=== PATIENT | male | born 1985 | race Caucasian/White ===

== ENCOUNTER → 2017-01-11 | Outpatient (CLI) | payer OTHER ==
[~2017-01-11] MED LIST: ASPIR-TRIN325 MG PO; ASPIRIN81 M2 PO; BRILINTA90 MG PO; LIPITOR40 MG PO; LISINOPRIL10 MG PO; LOPID600 MG PO; METOPROLOL TAR25 MG PO; NITROSTAT0.4 MG SL; OMEPRAZOLE20 M2 PO; TOPROL XL PO
--- NOTE | ~2017-01-11 | EKG ---
PATIENT: JOSUE PAUL UNIT #: [id number] Ventricular Rate: 64 BPM Atrial Rate: 64 BPM P-R Interval: 144 ms QRS Duration: 84 ms Q-T Interval: 390 ms QTC Calculation(Bezet): 402 ms P [place]: 25 degrees Calculated R [place]: -4 degrees Calculated T [place]: -7 degrees Diagnosis Line: Normal sinus rhythm Diagnosis Line: Inferior infarct (cited on or before 23-APR-2015) Diagnosis Line: Abnormal ECG Diagnosis Line: When compared with ECG of 25-SEP-2016 09:07, Diagnosis Line: No significant change was found Diagnosis Line: Confirmed by ASA FERNANDES MD ([id number]) on 01/12/2017 Diagnosis Line: 7:11:36 AM INTERPRETING MD: DENA BARBER
--- NOTE | ~2017-01-11 | CR72 ---
[facility] A Service of [facility] & [facility] RADIOLOGY TEXT RESULTS PATIENT: JOSUE PAUL LOCATION: [facility] : 89 UNIT #: [id number] AGE: [address]: Es Huber APRN SEX: M ORDER DR: [id number] [facility] [address] [place], [place] [address] [id number] E MR#: [id number] Acc #: [id number] NAME: JOSUE PAUL : 1985 SEX: M STUDY DATE/TIME: 01/11/2017 UNIT: [facility] ROOM: STUDY DESCRIPTION: CR Chest Single View Portable Attending Physician: Es Huber A.P.R.N. Ordering Physician: Ed Alden Moreno M.D. Primary Care Physician: Miguel Hoover M.D. MEDICAL IMAGING REPORT This report is preliminary unless electronic signature is present EXAM Chest portable 01/11/2017 1011 hours. HISTORY 31-year-old man complaining of left-sided chest pain radiating to left arm with headache since last night. Hypertension. COMPARISON 09/24/2016 FINDINGS 2 portable upright views demonstrate slightly low lung volumes. The heart size is within normal limits. Mediastinal and hilar contours are normal. The lungs are clear, and there are no effusions. IMPRESSION No acute cardiopulmonary findings. No appreciable change from 09/24/2016. Dictated by... Romy Borrego M.D. THIS IS AN ELECTRONICALLY VERIFIED REPORT Romy Borrego M.D. at 01/11/2017 2:29 PM Krys TD: 01/11/2017 11:32 JOB #: [id number] MEDICAL IMAGING REPORT COPY
--- NOTE | ~2017-01-11 | HP ---
Unit #: [id number] #: [id number] Patient: JOSUE PAUL [id number] [address] [place], [place] [address] [id number] E MR#: [id number] NAME: JOSUE PAUL ROOM: Age: 31 Sex: M Admission Date: 01/11/2017 : 1985 Attending Physician: Es Huber A.P.R.N. Primary Care Physician: Miguel Hoover M.D. HISTORY AND PHYSICAL HISTORY OF PRESENT ILLNESS This is a 31-year-old white male with known history of having coronary artery disease, previous non-ST elevation NC back in 2008 with a peak troponin of 10.29 and had a total of four overlapping bare-metal stents placed in the RCA and then again had another non-ST elevation NC back in 2013, had a PCI and stent placed to the mid RCA, ejection fraction 55% to 60%, had a borderline stress test done in 08/2016, showed some bev-infarct ischemia suspicious for inferior wall NC, hypertension, hyperlipidemia, strong family history of CAD, who came to the emergency room with chest pain. According to the patient, he had a stress test last August. He had been doing fairly well. He saw a strip polisher at [place], Dr. Silver. Patient states that he has been taking his medications that have been prescribed for his CAD. He does continue to chew tobacco but occasional marijuana but no drinking or any other polysubstance abuse. He does have a history back in 2008 having polysubstance abuse. Patient states he had been lifting some heavy items in his home, moving around some heavy items and he thought maybe he was sore. He started developing yesterday afternoon some left anterior chest wall pain that radiated under the left axilla region. He denies any shortness of breath, dizziness, palpitations, diaphoresis or nausea with the discomfort. He denies that it radiated up into the neck, bilateral jaws, shoulders, arms or elbows. He said it felt like just a hard pushing pressure. He said in the past his chest pain is usually substernal and he gets short of breath with it. He went to sleep last night and woke up this morning, started his day and started developing the same type of pain. He took a sublingual nitroglycerin which eased the pain off. After discussing with his family, he came into the emergency room for further evaluation and management. He has had no recent cough, fever or chills. In the emergency room the patient's blood pressure was 122/84, heart rate 69, respirations 16, temperature 97.9, O2 sats 99% on room air. Chest x-ray does not show anything acute. EKG shows normal sinus rhythm. It shows previous inferior infarct, age undetermined and nonspecific ST and T-wave abnormalities in anterolateral leads. Initial cardiac enzymes are negative. Patient has been given a total of four baby aspirin today. He will be admitted for further evaluation. PAST MEDICAL HISTORY 1. In 2008 had an emergent left heart catheterization and an emergency LhzcsVvw-aclajefo-coxep thrombectomy of the RCA status post balloon angioplasty and placement of three overlapping Zeta bare-metal stents Unit #: [id number] #: [id number] Patient: JOSUE PAUL extending from the distal RCA to the ostial RCA, and a percutaneous balloon angioplasty ans Vision bare-metal stent placement extending from the proximal posterior descending artery into an overlapping stent and distal RCA. 2. On 08/2014 a non-ST elevation NC, status post PCI and stent to the mid RCA. This was done at [facility]. Details are unavailable. This was obtained from a previous dictation here at [facility]. Other findings, 20% mid LAD, 30% stenosis in the ostial of the LAD and 20% distal stenosis in the circumflex with LVEF of 55% to 60%. 3. In 08/2016 exercise Cardiolite stress test, exercise time 11 minutes and 20 seconds. No ischemia but suspicious for an anterior wall NC with moderate bev-infarct ischemia with ejection fraction of 58%. 4. Hyperlipidemia. 5. Hypertension. 6. Nicotine abuse. 7. Marijuana abuse. 8. 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 9. Strong family history; his father and brother have CAD. PAST SURGICAL HISTORY 1. In 2008 status post PCI and bare-metal stents x3 from the distal RCA to the ostial RCA and Vision bare-metal stent to the proximal PDA and to an overlapping stent in distal RCA. 2. On 08/2014 status post PCI and stent to the mid RCA. 3. Ganglion cyst over the right wrist removal. HOME MEDICATIONS 1. Brilinta 90 mg p.o. b.i.d. 2. Omeprazole 20 mg one tablet daily. 3. Atorvastatin 40 mg one tablet daily. 4. Metoprolol tartrate 25 mg one tablet b.i.d. 5. Lisinopril 10 mg one tablet daily. 6. Aspirin 81 mg p.o. daily. ALLERGIES No known drug allergies. SOCIAL HISTORY Patient lives with his spouse and small infant, three months old. Patient chews tobacco, frequent marijuana use, no other illicit drug abuse, denies alcohol. FAMILY HISTORY He has an older brother that has had an NC and his father has had an NC and status post PCI and stents. REVIEW OF SYSTEMS CONSTITUTIONAL: Denies fever or chills. No recent weight gain or weight loss. HEENT: Denies headache or dizziness. No visual or hearing changes. No lymphadenopathy or thyromegaly. No difficulty swallowing. CARDIOVASCULAR: Chest pain present. Denies palpitations. Denies increased lower extremity edema. PULMONARY: Denies shortness of breath present. Denies paroxysmal nocturnal dyspnea or orthopnea. GASTROINTESTINAL: Denies nausea, vomiting or diarrhea, abdominal pain. NEUROLOGICAL: No focal weakness. Unit #: [id number] #: [id number] Patient: JOSUE PAUL PHYSICAL EXAMINATION GENERAL: On exam Mr. Paul is a 31-year-old white male in no acute respiratory distress. VITAL SIGNS: Blood pressure is 116/85. Heart rate is 66. Respirations 18. Temperature 97.9. O2 sats 100% on room air. NECK: Trachea midline. No thyromegaly or lymphadenopathy. Normal carotid upstrokes. No jugular venous distention. HEART: S1, S2. Regular rate and rhythm. No clicks, murmurs or rubs. LUNGS: Bilaterally clear throughout. No wheezes, rales or rhonchi. ABDOMEN: Slightly obese, soft, nontender and positive bowel sounds present. No hepatosplenomegaly. EXTREMITIES: Pedal pulses are palpable. No pedal edema. DIAGNOSTIC STUDIES LABORATORY: Glucose 119, BUN 19, creatinine 0.9, eGFR is above 60, sodium 136, potassium 4.0, chloride 102, CO2 is 26, calcium is 9.2, total protein 7.5, albumin 4.4, total bilirubin 0.9, AST is 88, ALT is 123, alkaline phosphatase is 60, BNP is 13, WBC 7.9, hemoglobin 15.5, hematocrit 45.6 and platelets 172. Initial cardiac enzymes: CK-MB is 1.5, troponin less than 0.05 and CK-MB is 1.4, troponin less than 0.05. IMAGING: Chest x-ray shows no acute cardiopulmonary findings. CARDIOVASCULAR: EKG shows normal sinus rhythm with ventricular rate 64 beats per minute, inferior infarct age undetermined, nonspecific ST and T-wave abnormalities in lateral leads and T-wave inversion in inferior leads. IMPRESSION 1. Chest pain, unstable angina. History of previous non-ST elevation myocardial infarction and stents placed back in 2008 and again in 2013. Last stress test showed left ventricular ejection fraction of 58%. 2. Hypertension. 3. Hyperlipidemia. 4. Strong family history of coronary artery disease. 5. Elevated liver function tests. 6. Nicotine abuse, chews tobacco. 7. Marijuana abuse. PLAN 1. So far cardiac enzymes are negative. EKG does not show anything acute; however, patient's significant history of CAD at such a young age and the patient states he is being compliant with his medical management and his symptoms, which the chest pain was relieved with a nitroglycerin, the patient prefers to have a reevaluation by cardiac catheterization. 2. Discussed with the patient risks and benefits including risk of bleeding, myocardial infarction, stroke and even . Patient verbalized his understand and agrees to proceed. 3. Also is noted on his last stress test back in September 27, 2016 that it did reveal a suspicion for inferior wall myocardial infarction with moderate amount of bev-infarct ischemia. So, heart catheterization will reevaluate any vessel that may have additional blockage. 4. Continue patient on his Brilinta, aspirin, his statin and his beta Unit #: [id number] #: [id number] Patient: JOSUE PAUL ALVERTO an and he is on an AMIRA inhibitor. 5. On exam there are no signs or symptoms of acute congestive heart failure. 6. Encouraged patient to completely quit nicotine abuse and marijuana use. 7. Obtain a fasting lipid profile and evaluate. Will reevaluate his liver function study. Looking back on previous admission back in 2011 his AST and ALT were a little bit elevated but will just continue to monitor. Further recommendations per Dr. Razo after the cardiac cath today. Dictated by Trina Dickson A.P.R.N. for Maida Marsh/makayla TD: 01/11/2017 16:55 JOB #: [id number] HISTORY AND PHYSICAL X Trina Dickson APRN X HISTORY AND PHYSICAL
[2017-01-11 10:14] LABS: BASOPHIL% 0.5 % (0-2.5); EOSINOPHIL# 0.2 X10e3 (0-0.7); EOSINOPHIL% 2.8 % (0.0-7.0); HEMATOCRIT 45.6 % (38.0-50.0); HEMOGLOBIN 15.5 gm/dL (13.0-16.0); LYMPHOCYTE# 2.2 X10e3 (1.0-3.5); LYMPHOCYTE% 28.3 % (17.0-45.0); MEAN CELL VOLUME 85.4 FL (83-96); MEAN CORPUSCULAR HEMOGLOBIN 29.1 PG (28-34); MONOCYTE# 0.7 X10e3 (0-1.0); MONOCYTE% 8.2 % (3.0-12.0); NEUTROPHIL# 4.8 X10e3 (1.5-7.1); NEUTROPHIL% 60.2 % (40-75); PLATELET COUNT 172 X10e3 (140-420); RED BLOOD COUNT 5.33 X10e (3.90-5.60); RED CELL DISTRIBUTION WIDTH 13.4 % (11.0-15.5); WHITE BLOOD COUNT 7.9 X10e3 (4.0-10.5)
[2017-01-11 10:19] LABS: POC - CKMB 1.5 ng/mL (0.0-7.9); POC - TROPONIN <0.05 ng/mL (<=0.05)
[2017-01-11 10:29] LABS: DIFF IND NO
[2017-01-11 10:43] LABS: ALBUMIN SERUM 4.4 g/dL (3.5-5.0); ALKALINE PHOSPHATASE 60 U/L (32-92); ALT (SGPT) 123 U/L (10-40); AST (SGOT) 88 U/L (10-42); BILIRUBIN, DIRECT 0.2 mg/dL (0.0-0.2); BILIRUBIN,INDIRECT 0.7 mg/dL (0.0-0.9); BILIRUBIN,TOTAL 0.9 mg/dL (0.2-2.0); BLOOD UREA NITROGEN 19 mg/dL (9-23); BUN/CREATININE RATIO 21.11; CALCIUM SERUM 9.2 mg/dL (8.4-10.2); CARBON DIOXIDE 26 mmol/L (22-31); CHLORIDE 102 mmol/L (100-111); CREATININE SERUM 0.9 mg/dL (0.6-1.4); GLOM FILT RATE Estimated ABOVE60 mL/min (>60); GLUCOSE FASTING 119 mg/dL (70-110); PROTEIN TOTAL SERUM 7.5 g/dL (6.0-8.3); SODIUM 136 mmol/L (135-145)
[2017-01-11 12:49] LABS: POC - CKMB 1.4 ng/mL (0.0-7.9); POC - TROPONIN <0.05 ng/mL (<=0.05)
== END | disposition home or self-care (01) ==
LOC: CCVL 09:55
PROVIDERS: Nurse Practitioner
DX: I25.118 Atherosclerotic heart disease of native coronary artery with other forms of angina pectoris (principal); I25.82 Chronic total occlusion of coronary artery; T82.598A Other mechanical complication of other cardiac and vascular devices and implants, initial encounter; I25.2 Old myocardial infarction; R74.8 Abnormal levels of other serum enzymes; I10 Essential (primary) hypertension; E78.5 Hyperlipidemia, unspecified; Z98.890 Other specified postprocedural states; Z91.040 Latex allergy status; Z88.0 Allergy status to penicillin
CPT/HCPCS: 36415; 71010; 80048; 80076; 82553; 83880; 84484; 85025; 85610; 93005; 99285; C1769; C1887; C1894; J1644; J2250; J3010

== ENCOUNTER 2017-08-10 23:08 | Emergency (ER) | payer OTHER ==
[~2017-08-10] VITALS: Ht 167.6 cm; Wt 88.5 kg
--- NOTE | ~2017-08-10 | CR20 ---
[facility] A Service of [facility] & [facility] RADIOLOGY TEXT RESULTS PATIENT: JOSUE PAUL LOCATION: [facility] : 89 UNIT #: [id number] AGE: [address]: Maria E Marvin APRN SEX: M ORDER DR: [id number] [facility] [address] [place], [place] [address] [id number] E MR#: [id number] Acc #: [id number] NAME: JOSUE PAUL : 1985 SEX: M STUDY DATE/TIME: 08/11/2017 00:50 UNIT: [facility] ROOM: STUDY DESCRIPTION: CR Ankle Min 3 Views Lt Attending Physician: Maria E Marvin A.P.R.N. Ordering Physician: Maria E Marvin A.P.R.N. Primary Care Physician: Miguel Hoover M.D. MEDICAL IMAGING REPORT This report is preliminary unless electronic signature is present EXAM Left ankle, 08/11 at 00:50. INDICATIONS Medial pain and bruising after injury at work 2 days ago. FINDINGS Three views of the ankle were obtained. There is no fracture or malalignment. The mortise is intact. There is some medial soft tissue swelling. IMPRESSION Medial soft tissue swelling, otherwise negative left ankle. Dictated by... Irwin Farrell Jr., M.D. THIS IS AN ELECTRONICALLY VERIFIED REPORT rIwin Farrell Jr., M.D. at 08/12/2017 1:53 AM EUNICE/cristina TD: 08/11/2017 12:02 JOB #: [id number] MEDICAL IMAGING REPORT Page 1 of 1 COPY
--- NOTE | ~2017-08-10 | CR126 ---
[facility] A Service of [facility] & [facility] RADIOLOGY TEXT RESULTS PATIENT: JOSUE PAUL LOCATION: [facility] : [birth year] UNIT #: [id number] AGE: [address]: Maria E Marvin APRN SEX: M ORDER DR: [id number] [facility] [address] [place], [place] [address] [id number] E MR#: [id number] Acc #: [id number] NAME: JOUSE PAUL : 1985 SEX: M STUDY DATE/TIME: 08/11/2017 00:52 UNIT: [facility] ROOM: STUDY DESCRIPTION: CR Foot Complete Min 3 View Lt Attending Physician: Maria E Marvin A.P.R.N. Ordering Physician: Maria E Marvin A.P.R.N. Primary Care Physician: Miguel Hoover M.D. MEDICAL IMAGING REPORT This report is preliminary unless electronic signature is present EXAM Left foot, 08/11 at 00:52. INDICATIONS Foot pain on the medial side with bruising for 2 days after injury at work. FINDINGS The tarsal, metatarsal, and phalangeal elements are all anatomically normal in position and alignment. There are no articular defects. No fractures or radiopaque foreign bodies in the soft tissues are apparent. IMPRESSION Normal foot. Dictated by... Irwin Farrell Jr., M.D. THIS IS AN ELECTRONICALLY VERIFIED REPORT Irwin Farrell Jr., M.D. at 08/12/2017 1:54 AM EUNICE/cristina TD: 08/11/2017 12:05 JOB #: [id number] MEDICAL IMAGING REPORT Page 1 of 1 COPY
== END 2017-08-11 01:44 | disposition home or self-care (01) ==
LOC: CED 23:08 → CFTX 23:59 → CED 08-11 01:44
DX: S90.02XA Contusion of left ankle, initial encounter (principal); S90.32XA Contusion of left foot, initial encounter; E78.5 Hyperlipidemia, unspecified; I10 Essential (primary) hypertension; Z88.0 Allergy status to penicillin; F17.290 Nicotine dependence, other tobacco product, uncomplicated; W01.0XXA Fall on same level from slipping, tripping and stumbling without subsequent striking against object, initial encounter; Y92.69 Other specified industrial and construction area as the place of occurrence of the external cause; Y99.0 Civilian activity done for income or pay
CPT/HCPCS: 29405; 29540; 73610; 73630; 99283

== ENCOUNTER 2017-08-15 10:12 | Emergency (ER) | payer OTHER | END 2017-08-15 11:00 | disposition home or self-care (01) | LOC: SED 10:12 | DX: S99.912A Unspecified injury of left ankle, initial encounter (principal); S99.922A Unspecified injury of left foot, initial encounter; I10 Essential (primary) hypertension; E78.5 Hyperlipidemia, unspecified; W22.8XXA Striking against or struck by other objects, initial encounter; Y92.69 Other specified industrial and construction area as the place of occurrence of the external cause; Y99.0 Civilian activity done for income or pay | CPT/HCPCS: 99283 ==